=== PATIENT | male | born 1965 | race Caucasian/White ===

== ENCOUNTER 2018-11-17 22:05 | Emergency (ER) | payer BC ==
[~2018-11-17] VITALS: Ht 167.6 cm; Wt 65.8 kg
--- NOTE | 2018-11-17 23:00 | NUR ---
Patient discharged to home in stable conditon. Written and verbal after care instructions given. Patient verbalizes understanding of instructions. Pt. d/c w/ prescription per MD order, d/c papers signed, all belongings w/ pt., ID band removed, ambulated off unit w/ steady gait accompanied by female faculty neuropsychologist, CELY, NAD
== END 2018-11-17 23:00 | disposition home or self-care (01) ==
LOC: ER 22:05
DX: J06.9 Acute upper respiratory infection, unspecified (principal)
CPT/HCPCS: A4663